=== PATIENT | female | born 1935 | race Caucasian/White ===

== ENCOUNTER 2017-01-08 07:35 | Emergency (ER) | payer MEDICARE, OTHER ==
[~2017-01-08] VITALS: Ht 172.7 cm; Wt 79.4 kg
[~2017-01-08 07:35] MED LIST: ACETAMINOPHEN325 M1 PO; CIPRO500 MG PO; DETROL LA4 MG; FUROSEMIDE40 MG PO; KEFLEX500 MG PO; LEVOTHYROXINE100 MCG PO; MACROBID 100 M100 MG PO; NAPROSYN500 MG PO; POTASSIUM CHLO10 MEQ PO; PROAIR HFA8.5 GM INH; SYNTHROID100 MCG; TOLTERODINE TART4 MG PO; VITAMIN D5000 UNIT PO; WATER PILL; ZOFRAN ODT4 MG PO
[2017-01-08] MEDS ORDERED: CIPRO500 MG PO (09:06)
== END 2017-01-08 09:45 | disposition home or self-care (01) ==
LOC: ED 07:35
PROC: 0T9B70Z Drainage of Bladder with Drainage Device, Via Natural or Artificial Opening (ICD-10-PCS; principal; 2017-01-08)
DX: N39.0 Urinary tract infection, site not specified (principal); R32 Unspecified urinary incontinence; E03.9 Hypothyroidism, unspecified; J45.909 Unspecified asthma, uncomplicated; Z87.891 Personal history of nicotine dependence; Z90.710 Acquired absence of both cervix and uterus; Z79.899 Other long term (current) drug therapy
CPT/HCPCS: 51702; 81001; 87077; 87088; 87186; 99283

== ENCOUNTER 2017-02-25 15:56 | Emergency (ER) | payer MEDICARE, OTHER ==
[~2017-02-25] VITALS: Ht 172.7 cm; Wt 79.4 kg
--- OUTSIDE RECORDS SUMMARY | ~2017-02-25 | XMS ---
Demographics + + + | Address | [address] | | | [address] | | | [place] [address] | + + + | Preferred Language | Unknown | + + + | Marital Status | Unknown | + + + | Synagogue Affiliation | Unknown | + + + | Race | Unknown | + + + | Ethnic Group | Unknown | + + + Author + + + | Author | [facility] | + + + | Organization | [facility] | + + + | Address | [address] | | | [place] [address] | + + + | Phone | | + + + Care Team Providers + + + + | Care Pie Chef Name | Role | Phone | + + + + Unavailable | Unavailable | + + + + PROBLEMS +---------+ + + +--------+ + + | Type | Condition | ICD9-CM | [id number] | Onset | Condition | SNOMED | | | | Code | Code | Dates | Status | Code | +---------+ + + +--------+ + + | Problem | Urge | N39.41 | | | Active | [id number] | | | incontinen | | | | | | | | ce | | | | | | +---------+ + + +--------+ + + | Problem | Chronic | | Z92.89 | | Active | 407062603 | | | indwelling | | | | | | | | Gamez | | | | | | | | catheter | | | | | | +---------+ + + +--------+ + + | Problem | Lymphedema | | I89.0 | | Active | [id number] | +---------+ + + +--------+ + + | Problem | Acquired | E03.9 | | | Active | [id number] | | | hypothyroi | | | | | | | | dism | | | | | | +---------+ + + +--------+ + + | Problem | Essential | | I10 | | Active | [id number] | | | hypertensi | | | | | | | | on | | | | | | +---------+ + + +--------+ + + ALLERGIES Unknown Allergies SOCIAL HISTORY No smoking Hx information available PLAN OF CARE VITAL SIGNS MEDICATIONS Unknown Medications RESULTS No Results PROCEDURES No Known procedures IMMUNIZATIONS No Known Immunizations"
--- OUTSIDE RECORDS SUMMARY | ~2017-02-25 | XMS ---
Demographics + + + | Address | [address] | | | [address] | | | [place] [address] | + + + | Preferred Language | Unknown | + + + | Marital Status | Unknown | + + + | Episcopal Affiliation | Unknown | + + + | Race | Unknown | + + + | Ethnic Group | Unknown | + + + Author + + + | Author | [facility] | + + + | Organization | [facility] | + + + | Address | [address] | | | [place] [address] | + + + | Phone | | + + + Care Team Providers + + + + | Care Platform Material Handler Manager Name | Role | Phone | + + + + Unavailable | Unavailable | + + + + PROBLEMS +---------+ + + +--------+ + + | Type | Condition | ICD9-CM | [id number] | Onset | Condition | SNOMED | | | | Code | Code | Dates | Status | Code | +---------+ + + +--------+ + + | Problem | Urge | N39.41 | | | Active | [id number] | | | incontinen | | | | | | | | ce | | | | | | +---------+ + + +--------+ + + | Problem | Chronic | | Z92.89 | | Active | 397846795 | | | indwelling | | | | | | | | Gamez | | | | | | | | catheter | | | | | | +---------+ + + +--------+ + + | Problem | Lymphedema | | I89.0 | | Active | 340467353 | +---------+ + + +--------+ + + | Problem | Acquired | E03.9 | | | Active | 675695905 | | | hypothyroi | | | | | | | | dism | | | | | | +---------+ + + +--------+ + + | Problem | Essential | | I10 | | Active | [id number] | | | hypertensi | | | | | | | | on | | | | | | +---------+ + + +--------+ + + ALLERGIES Unknown Allergies SOCIAL HISTORY No smoking Hx information available PLAN OF CARE VITAL SIGNS MEDICATIONS + + + + + + + +--------+ | Medicati | Instruct | Dosage | Frequenc | Start | End Date | Duration | Status | | on | ions | | y | Date | | | | + + + + + + + +--------+ | Vitamin | Orally | 1 | 24h | 19 Nov, | | | Active | | D 2000 | Once a | capsule | | 2011 | | | | | UNIT | day | | | | | | | + + + + + + + +--------+ | Furosemi | | TAKE TWO | | | | | Active | | de 40mg | | TABLETS | | | | | | | | | BY | | | | | | | | | MOUTH | | | | | | | | | EVERY | | | | | | | | | DAY | | | | | | + + + + + + + +--------+ | Levothyr | Orally | 1 tablet | 24h | | | | Active | | oxine | Once a | every | | | | | | | Sodium | day | morning | | | | | | | 100 MCG | | on an | | | | | | | | | empty | | | | | | | | | stomach | | | | | | + + + + + + + +--------+ RESULTS No Results PROCEDURES No Known procedures IMMUNIZATIONS No Known Immunizations"
--- OUTSIDE RECORDS SUMMARY | ~2017-02-25 | XMS ---
Demographics + + + | Address | [address] | | | [address] | | | [place] [address] | + + + | Preferred Language | Unknown | + + + | Marital Status | Unknown | + + + | Mormonism Affiliation | Unknown | + + + | Race | Unknown | + + + | Ethnic Group | Unknown | + + + Author + + + | Author | [facility] | + + + | Organization | [facility] | + + + | Address | [address] | | | [place] [address] | + + + | Phone | | + + + Care Team Providers + + + + | Care Telesales Agent Name | Role | Phone | + + + + Unavailable | Unavailable | + + + + PROBLEMS +---------+ + + +--------+ + + | Type | Condition | ICD9-CM | [id number] | Onset | Condition | SNOMED | | | | Code | Code | Dates | Status | Code | +---------+ + + +--------+ + + | Problem | Urge | N39.41 | | | Active | [id number] | | | incontinen | | | | | | | | ce | | | | | | +---------+ + + +--------+ + + | Problem | Chronic | | Z92.89 | | Active | 170876883 | | | indwelling | | | | | | | | Gamez | | | | | | | | catheter | | | | | | +---------+ + + +--------+ + + | Problem | Lymphedema | | I89.0 | | Active | [id number] | +---------+ + + +--------+ + + | Problem | Acquired | E03.9 | | | Active | [id number] | | | hypothyroi | | | | | | | | dism | | | | | | +---------+ + + +--------+ + + | Problem | Essential | | I10 | | Active | [id number] | | | hypertensi | | | | | | | | on | | | | | | +---------+ + + +--------+ + + ALLERGIES Unknown Allergies SOCIAL HISTORY No smoking Hx information available PLAN OF CARE + +---------+ | Activity | Details | + +---------+ +---+ | | +---+ + + + | Follow Up | 6 Months Reason:null | + + + VITAL SIGNS MEDICATIONS + + + + [...] | Once a | capsule | | 2012 | | | | | UNIT | [...] + + +--------+ RESULTS No Results PROCEDURES + + + + + | Procedure | Date Ordered | Related Diagnosis | Body Site | + + + + + | CYSTOSCOPY | Jan 27, 2017 | | | + + + + + IMMUNIZATIONS No Known Immunizations"
== END 2017-02-25 16:58 | disposition home or self-care (01) ==
LOC: ED 15:56
DX: T83.031A Leakage of indwelling urethral catheter, initial encounter (principal); J45.909 Unspecified asthma, uncomplicated; E03.9 Hypothyroidism, unspecified; Z87.891 Personal history of nicotine dependence; Z90.710 Acquired absence of both cervix and uterus; Z79.899 Other long term (current) drug therapy
CPT/HCPCS: 99283

== ENCOUNTER 2017-08-24 05:37 | Day surgery (SDC) | payer MEDICARE, OTHER ==
[~2017-08-24] VITALS: Ht 172.7 cm; Wt 71.8 kg
--- NOTE | 2017-08-24 06:16 | NUR ---
CHART REVIEW DONE BY OR CHARGE, K+ 3.1. ORDER FOR CMP SENT TO LAB, LAB CALLED. WILL BE OVER TO DRAWN PT.
--- NOTE | 2017-08-24 09:45 | NUR ---
LE 0840 PT RETURNED FROM PACU, AWAKE TALKING WITH STAFF. PT DENIES PAIN AND NAUSEA. VITALS STABLE. ORANGE JUICE AND WATER GIVEN. PT WATCHING TV, NO FURTHER NEEDS AT THIS TIME. CALL LIGHT IN HAND. LE 0900 IN TO CHECK ON PT, PT AWAKE WATCHING TV. PT C/O "STOMACH ACHE." DENIES FEELING THE NEED TO VOMIT. CRACKERS GIVEN. PT RESTING, DENIES PAIN. WILL CONTINUE TO CHECK ON PT.
--- NOTE | 2017-08-24 09:48 | NUR ---
IN TO CHECK ON PT, PT SLEEPING. PT AWAKENS TO VOICE AND SLIGHT TOUCH. DENIES PAIN OR NAUSEA. TOLERATED CRACKER AND WATER. VITALS OBTAINED, STABLE. NO FURTHER NEEDS AT THIS TIME. PT RESTING. WILL CONTINUE TO MONITOR.
--- NOTE | 2017-08-24 10:20 | NUR ---
LE 1000 PT CALLED, MAGDALENA BETANCUR IN ROOM. RN IN ROOM, URINE LEAKING AROUND CATHETER. CATHETER BALLOON INFLATED WIT 25 CC OF NS PER PIPE NICHOLS. ASSITED PT TO STANDING, TOLERATED WELL. GOWN AND LINEN CHANGED. PT PERSONAL BREIFS PLACED. PT BACK TO BED. CHICKEN NOODLE SOUP GIVEN PER REQUEST. NO FURTHER NEEDS AT THIS TIME. DISCUSSED DISCHARGE WITH PT, WILL CALL CAREGIVER TO NOTIFY. NO FURTHER NEEDS, CALL LIGHT IN REACH.
--- NOTE | 2017-08-24 10:58 | OR ---
[facility] [address], [place] [address] Signed DATE OF OPERATION: 08/24/2017 SURGEON: Adalberto Light MD PREOPERATIVE DIAGNOSES: 1. Chronic indwelling Gamez catheter due to history of severe overactive bladder symptoms. 2. Bladder lesion. POSTOPERATIVE DIAGNOSES: 1. Chronic indwelling Gamez catheter due to history of severe overactive bladder symptoms. 2. Bladder lesion. NAMES OF PROCEDURES: 1. Diagnostic cystoscopy. 2. Transurethral resection of bladder tumor-small. ANESTHESIA: General. ESTIMATED BLOOD LOSS: Minimal. COMPLICATIONS: None. SPECIMENS: Posterior bladder wall lesion sent to pathology for evaluation. DRAINS: A 24-Djiboutian 2-way Gamez catheter, connected to gravity drainage via a leg back. INDICATIONS FOR PROCEDURE: Nellie is a very pleasant 81-year-old female, who is well known to me. She is currently undergoing q.3 week Gamez catheter exchanges for management of bladder spasticity/dysfunction. 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 At this point in time, she is a Gamez catheter-dependent. She underwent a cystoscopy a few weeks ago in my clinic, where she was found to have a couple of lesions present on the posterior wall of Electronically Signed By: ADALBERTO LIGHT MD 08/24/17 1058 PATIENT NAME: NELLIE CROSS OPERATIVE REPORT DATE OF : 31 REPORT #: [id number] PHYSICIAN: ADALBERTO LIGHT MD PCP: RAINA MARIE DO REPORT IS CONFIDENTIAL AND NOT TO BE RELEASED WITHOUT AUTHORIZATION [facility] [address] [place], [place] [address] Signed the bladder that were suspicious beyond the point of typical mucosal edema due to chronic Gamez catheter irritation. She presents today to undergo resection of these posterior wall tumors to rule out the possibility of possible malignancy. OPERATIVE FINDINGS: 1. On cystoscopy, there were two 0.5 cm lesions noted juxtaposed to one another present on the posterior wall of the bladder. There was one that appeared to be hemorrhagic in nature and the other appeared to be hyperplastic. Both lesions were excised using a bipolar loop without difficulty and sent to pathology for evaluation. The biopsy bed was then cauterized gently to ensure adequate hemostasis. 2. The remainder of the bladder appeared to be within normal limits with no evidence of any other lesions or masses or stones. Bilateral ureteral orifices are in their normal anatomic location. 3. Ureteroscopy reveals moderate intrinsic sphincter deficiency. Her remainder of the urethra appears normal, however, is moderately dilated. 4. A fresh 24-Djiboutian 2-way Gamez catheter was inserted into the patient's bladder at the end of the procedure, and connected to a leg bag. DESCRIPTION OF PROCEDURE: After informed consent was obtained, the patient was taken back to the operating room. She was transferred from the [facility] to the operating room table, where general anesthesia was induced. She was placed in the dorsal lithotomy position and her genitalia were prepped and draped in standard sterile fashion. Initial cystoscopy was performed using a 30-degree lens on a 21-Djiboutian introducer. Panendoscopic view of the bladder then obtained. I then removed the cystoscope and inserted a resectoscope through a 24-Djiboutian sheath. I then began to resect using the bipolar loop, the 2 posterior bladder wall lesions as described above. I tried to obtain muscle fibers within the specimen to ensure adequate depth of biopsy. I successfully excised both specimens transurethrally and placed in a specimen cup. I also excised some of the surrounding erythematous tissue as well. All specimens were placed in the single specimen cup and sent to the lab for evaluation. After cauterizing the biopsy bed, I re-evaluated the remaining parts of the bladder wall and was assured that I did not see any other abnormal areas. The patient's bladder was then drained and the resectoscope was then removed. The procedure was then terminated. The patient tolerated the procedure well without any complication. She will now be transferred to the postanesthesia care unit in stable condition. DISPOSITION: The patient will be discharged to home later today in stable condition with her 24-Djiboutian 2-way Gamez catheter connected to gravity drainage. She will be sent home with Bactrim Double Strength one tablet p.o. b.i.d. for a total of 7 days along with Percocet 5/325 dispense #10 p.r.n. pain. She will be scheduled to return to clinic in 3 Electronically Signed By: ADALBERTO LIGHT MD 08/24/17 1058 PATIENT NAME: NELLIE CROSS OPERATIVE REPORT DATE OF : 31 REPORT #: [id number] PHYSICIAN: ADALBERTO LIGHT MD PCP: RAINA MARIE DO REPORT IS CONFIDENTIAL AND NOT TO BE RELEASED WITHOUT AUTHORIZATION [address] [address] Signed weeks to undergo postop check and to discuss her pathology results. We will also perform a routine catheter exchange at that time. Adalberto Light MD AR/MODL /[id number] Copies: ~ Electronically Signed By: ADALBERTO LIGHT MD 08/24/17 1058 PATIENT NAME: NELLIE CROSS OPERATIVE REPORT DATE OF : 31 REPORT #: [id number] PHYSICIAN: ADALBERTO LIGHT MD PCP: RAINA MARIE DO REPORT IS CONFIDENTIAL AND NOT TO BE RELEASED WITHOUT AUTHORIZATION
== END 2017-08-24 10:50 | disposition home or self-care (01) ==
LOC: OPS 05:37 → DS 05:37 → OPS 06:45 → DS 09:40 → OPS 09:40
PROVIDERS: Urology
PROC: 0TJB8ZZ Inspection of Bladder, Via Natural or Artificial Opening Endoscopic (ICD-10-PCS; 2017-08-24)
PROC: 0TBB8ZZ Excision of Bladder, Via Natural or Artificial Opening Endoscopic (ICD-10-PCS; principal; 2017-08-24 06:45)
DX: N30.10 Interstitial cystitis (chronic) without hematuria (principal); N39.41 Urge incontinence; I89.0 Lymphedema, not elsewhere classified; I11.0 Hypertensive heart disease with heart failure; I50.9 Heart failure, unspecified; E03.9 Hypothyroidism, unspecified; M19.90 Unspecified osteoarthritis, unspecified site; E78.00 Pure hypercholesterolemia, unspecified; M54.9 Dorsalgia, unspecified; G89.29 Other chronic pain; E55.9 Vitamin D deficiency, unspecified; Z96.0 Presence of urogenital implants; Z90.710 Acquired absence of both cervix and uterus; Z98.890 Other specified postprocedural states; Z79.899 Other long term (current) drug therapy
CPT/HCPCS: 00910; 36415; 80053; 88305; 88341; 88342; J0696; J1100; J2250; J2405; J2704; J3010; J7120

== ENCOUNTER 2019-07-22 12:56 | Inpatient (IN) | payer MEDICARE, OTHER ==
[~2019-07-22] VITALS: Ht 172.7 cm; Wt 72.6 kg
--- NOTE | 2019-07-22 20:19 | NUR ---
PT REPORT RECIEVED FROM CLIENT EXPERIENCE SPECIALIST. PT TRANSPORTED VIA STRETCHER BY LINE CREW SUPERVISOR WITH LEVOPHED DRIP AND POTASSIUM INFUSING. PT ON STEEL FLOOR PAN PLACING SUPERVISOR DURING TRANSPORT. MOVED PT TO HOSPITAL BED. PT RESPONSIVE TO VOICE, AND TOUCH. ORIENTED TO SELF BUT NOT TIME, DATE, OR EVENT.
--- NOTE | 2019-07-22 20:45 | NUR ---
INITIAL ASSESSMENT COMPLETED. PT BLOOD PRESSURE AT 127/59 (76). LEVOPHED DRIP DECREASED TO 8 MCG/MIN. SKIN ASSESSMENT REVEALED LARGE REDDENED AREA AND EXCORIATION ON COCCYX. COVERED WITH ALLEVYN DRESSING AT THIS TIME. PT CONTINUES TO RESPOND TO QUESTIONS AND COMMANDS. URINE CATHETER MANIPULATED, AND URINE OUT PUT HAS INCREASED. WILL CONTINUE TO MONITOR BLOOD PRESSURE, URINE OUTPUT, AND LEVEL OF CONCIOUSNESS ROHINI.
--- NOTE | 2019-07-22 22:09 | NUR ---
LEVOPHED DRIP DECREASED TO 4 MCG/MIN FOR BLOOD PRESSURE OF 106/510 (62). AFTER 15 MINUTES LEVOPHED DRIP TITRATED BACK UP TO 8 MCG/MIN FOR BLOOD PRESSURE OF 84/37 (48).
--- NOTE | 2019-07-22 22:35 | NUR ---
PT DESATURATED TO 82 PERCENT ON 2 L OXIMASK. TURNED OXYGEN UP TO 4 L. PT NOW MAINTAINING SATURATIONS ABOVE 90 PERCENT.
--- NOTE | 2019-07-22 23:53 | NUR ---
IN ROOM FOR ASSESSMENT. PT ORIENTED TO SELF AND LOCATION AT THIS TIME. CROOK CATHETER LEAKING URINE, ADVANCED CROOK HIGHER AND REFILLED BALLON. LEVOPHED TURNED DOWN TO 6 MCG/MIN FOR BLOOD PRESSURE OF 112/72 (77). SUPPLEMENTAL O2 TITRATED DOWN TO 2 L OXYMASK. SATURATIONS AT 97 PERCENT. REPOSITIONED PT ONTO LEFT SIDE. WILL CONTINUE TO [facility] MONITOR.
--- NOTE | 2019-07-23 00:47 | NUR ---
LEVOPHED DRIP TITRATED BACK UP TO 8 MCG/MIN TO KEEP BLOOD PRESSURE TO KEEP MAP OVER 60.
--- NOTE | 2019-07-23 02:10 | NUR ---
LEVOPHED DRIP REMAINS AT 8 MCG/MIN. URINE OUTPUT CONTINUES TO BE WNL. PT SLEEPING DEEPLY, SPO2 98 PERCENT ON 2 L OXYMASK.
--- NOTE | 2019-07-23 02:21 | NUR ---
LEVOPHED DRIP TITRATED UP TO 10 MCG/MIN FOR A BLOOD PRESSURE OF 73/49 (53).
--- NOTE | 2019-07-23 03:19 | NUR ---
PT AWAKE IN ROOM, CALLING OUT. PT APPEARS MORE ALERT THAN BEFORE. SHE SAYS "I FEEL FINE." PT DENIES HAVING ANY MEDICAL PROBLEMS. STATES "DILEEP LAYS OUT MY MEDS FOR ME AND I KNOW WHEN TO TAKE THEM" PT IS NOT ORIENTED TO DATE, TIME, OR EVENT. PT NOW BACK ALSEE. WILL CONTINUE TO CLOSELY MONITOR.
--- NOTE | 2019-07-23 03:38 | NUR ---
PT AWAKE IN ROOM, WATCHING TELEVISON. ASSISTED PT WITH DRINKING WATER. PT ASKING QUESTIONS ABOUT HER CAREGIVER EMILEE. INFORMED PT THAT WE WOULD TRY TO GET A HOLD OF HER LATER IN THE MORNING.
--- NOTE | 2019-07-23 04:00 | NUR ---
PT ASSESSMENT COMPLETED. PT ABLE TO MOVE HERSELF IN BED AND REMAINS AWAKE THROGHOUT THE ASSESSMENT. CONTINUES TO ASK ABOUT GOING HOME TODAY AND ABOUT WHY SHE WAS HOSPITALIZED. FREQUENT REORIENTATION REQUIRED. PT IS WATCHING TV. IV FLUIDS INFUSING AND LEVOPHED DRIP CONTINUES TO INFUSE AT 10 MCG/MIN.
--- NOTE | 2019-07-23 06:10 | NUR ---
PT REMAINS AWAKE WATCHING TV. ATTEMPTED TO TURN LEVOPHED DOWN TO 8 MCG/MIN BUT HAD TO TURN BACK UP TO 10 MCG/MIN TO MAINTAIN MAP AND SYSTOLIC PRESSURE. PT GIVEN WATER. ALL QUESTIONS ANSWERED. WILL CONTINUE TO MONITOR.
--- NOTE | 2019-07-23 06:48 | NUR ---
LEVOPHED DRIP TITRATED DOWN TO 8 MCG/MIN.
--- NOTE | 2019-07-23 07:36 | EKG ---
[facility] [address] [place] [facility] [address] [place] [address] Signed Normal sinus rhythm Prolonged QT Abnormal ECG When compared with ECG of 17-AUG-2017 11:11, QT has lengthened Confirmed by MARIA DEL CARMEN ZAVALA MD ([id number]) on 07/23/2019 7:35:49 AM Electronically Signed By: MARIA DEL CARMEN ZAVALA MD 07/23/19 0736 PATIENT NAME: NELLIE CROSS Electrocardiogram DATE OF : 31 PHYSICIAN: MARIA DEL CARMEN ZAVALA MD REPORT #: [id number] REPORT IS CONFIDENTIAL AND NOT TO BE RELEASED WITHOUT AUTHORIZATION
--- NOTE | 2019-07-23 08:15 | NUR ---
DR. ZAVALA IN ROOM TO SEE PATIENT. PT REMAINS SLIGHTLY CONFUSED, ASKING IF SHE CAN GO HOME. PT DOES NOT RECALL WHY SHE IS IN THE HOSPITAL, AND NOT AWARE OF WHY SHE IS HERE. ASSESSMENT COMPLETE. PLAN OF CARE DISCUSSED.
--- NOTE | 2019-07-23 09:04 | NUR ---
LEVOPHED TURNED DOWN TO 6 MCG/MIN AT THIS TIME. LEVOPHED INFUSING INTO LEFT AC WITHOUT DIFFICULTY. NO SIGNS OF PHLEBITIS OR INFILTRATION. WILL CONTINUE TO MONITOR CLOSELY.
--- NOTE | 2019-07-23 10:59 | NUR ---
LEVOPHED TURNED DOWN TO 4 MCG/MIN. PT HAS HAD A VISITOR HERE AND GONE. PT RESTING IN BED AND REQUESTS TO HAVE HER "ACTIVITY BOOKS" THAT WILL HELP HER PASS THE TIME. PT REMAINS ALERT, ORIENTED TO SELF AND MONTH, AND BECOMING FAMILIAR WITH THE SITUATION. PT DOES NOT RECALL YESTERDAYS EVENTS AND STATES, "I DON'T REMEMBER PASSING OUT! OR TAKING A RIDE IN THE AMBULANCE." PT TO BE GIVEN LACTULOSE FOR ELEVATED AMMONIA LEVEL.
--- NOTE | 2019-07-23 13:58 | NUR ---
PATIENT UP TO BSC TO HAVE A BM AND HAS A LARGE FORMED BM, WELL S OME LIQUID STOOL. IV SITE IN LEFT AC RE-DRESSED BUT IS STILL LEAKING AROUND SITE SOME. WILL CONTINUE TO MONITOR. PT'S LEVOPHED HAS BEEN OFF SINCE 1300 AND BP HOLDING STEADY. LAST BP 96/47 (60). PT IS A 1 PERSON ASSIST IN AND OUT OF BED. PT NOW BACK IN BED WATCHING TV AND LOOKING AT HER WORD BOOKS.
--- NOTE | 2019-07-23 14:13 | NUR ---
PATIENT UP TO BSC AGAIN AND CROOK CATHETER INADVERTENTLY PULLED OUT WHILE PATIENT GETTING UP TO BSC. PT DENIES FEELING CATHETER REMOVING. BALLOON STILL INTACT WITH SALINE UPON INSPECTION, WITH SOME PURULENT DRAINAGE ON TIP OF CROOK CATHETER. PT ON COMMODE HAVING ANOTHER B M AT THIS TIME.
--- NOTE | 2019-07-23 14:40 | NUR ---
NEW CROOK PLACED, 18 FR, 10 CC BALLOON WITHOUT DIFFICULTY. PT'S PREVIOUS CROOK HAD FALLEN OUT WHEN PATIENT MOVING TO [facility]. PT DENIED FEELING THIS FALLING OUT, AND NO SIGN OF ANY DAMAGE FROM CATHETER REMOVAL WITH BULB FULL OF SALINE.
[2019-07-23] MEDS ORDERED: POTASSIUM CHLO20 ME1 PO (16:37)
--- NOTE | 2019-07-23 17:20 | NUR ---
LEVOPHED TURNED BACK ON AT 2 MCG/MIN AT THIS TIME. LAST BP 86/42 AND 86/44 WITH THE MAPS IN THE LOW 50s. PT CONTINUES TO MAKE URINE WELL. PT REMAINS CONFUSED IN GENERAL AND HAS A HARD TIME REMEMBERING EVENTS OF THE DAY, NEEDING REMINDERS OFTEN. PT VERY PLEASANT AND THANKFUL FOR HER CARE. CONTINUE TO MONITOR.
--- NOTE | 2019-07-23 20:00 | NUR ---
PT AT THIS TIME IS ALERT AND TALKING. LACTULOSE DOSE FOR THIS EVENING WAS HELD SINCE PT HAS HAD SEVERAL BM'S TODAY. ALL LOBES ARE CLEAR, ABD SOUNDS PRESENT, PT HAS +1 BILATERAL LOWER LEG EDEMA. OVERALL STRENGTH IS +4. LEVOPHED IS AT 2MCG. V/S ARE WDL OVERALL. WILL CONTINUE TO MONITOR.
--- NOTE | 2019-07-23 22:05 | NUR ---
LEVOPHED DRIP INCREASED TO 4MCG FOR BP OF 90/51 (53). PT IS AWAKE AND ALERT IN BED WATCHING TV.
--- NOTE | 2019-07-24 00:30 | NUR ---
AT ABOUT 2340 IT WAS NOTED THAT LEFT FOREARM IV SITE HAS INFILTRATED. LEVOPHED DRIP WAS RUNNING ALONG WITH IV FLUIDS. MD ZAVALA WAS CALLED FOR AN ORDER OF PHENTOLAMINE SUBQ INJECTION, ORDER WAS RECEIVED. POTATO PEELER WAS ALSO CALLED TO ORGANIZED THE MEDICATION SINCE I WAS UNABLE TO OVERRIDE THE ORDER IN THE [facility]IS. POLICY WAS REVIEWD, FLUID WAS ASPIRATED FROM IV SITE AND THEN FLUSHED WITH NS PER POLICY. IV SITE WAS REMOVED PER POLICY. 10MG PHENTOLAMINE WAS DILUTED IN 15MLS NS. PT WAS INJECTED X6 PER HOSPITAL POLICY. WILL CONTINUE TO MONITOR IV SITE.
--- NOTE | 2019-07-24 01:39 | NUR ---
MD ZAVALA WAS CALLED ABOUT DROPPING BP'S. ORDERS WERE RECEIVED TO D/C IV FLUIDS AND TO PUT PT BACK ON LEVOPHED VIA NEW PERIPHERAL IV SITE IN LEFT FOREARM. PICC LINE CONSULT IS ALSO TO BE ORDERED FOR THE MORNING. AT THIS TIME, RIGHT FOREARM IS HOT TO TOUCH BUT EDEMA HAS NOT INCREASED. RIGHT HAND AND FINGERS ARE WARM TO TOUCH NOW. PT SINCE THE INCIDENT OCCURED HAS NOT HAD ANY NEW NUMBNESS IN HER FINGERS. WILL CONTINUE TO MONITOR.
--- NOTE | 2019-07-24 04:00 | NUR ---
AT THIS TIME THE D/C IV SITE ON HER LEFT AC/FOREARM IS NOT HOT ANYMORE, RIGHT ULNAR AND RADIAL PULSES +2, EDEMA IS UNCHANGED OVERALL, PT DENIES NEW NUMBNESS IN RIGHT HAND AND FINGERS, CAP REFILL IS <2 SEC. ALL LOBES ARE CLEAR AT THIS TIME. LEVOPHED DRIP AT 2MCG. IV SITE WDL SO FAR. V/S WDL WITH MUCH BETTER BP'S, BILATERAL LOWER LEG EDEMA IS UNCHANGED AT +1. NO NEW CONCERNS NOTED AT THIS TIME.
--- NOTE | 2019-07-24 06:31 | NUR ---
INFILTRATION SITE ON RIGHT FOREARM HAS MUCH LESS EDEMA PRESENT AT THIS TIME, HAND AND FINGERS ARE WARM TO TOUCH, ULNAR AND RADIAL PULSES ARE +2, PT DENIES PAIN AT SITE. LEFT FOREARM IV SITE IS WDL SO FAR WITH LEVOPHED RUNNING AT 2MCG. V/S ARE WDL.
--- NOTE | 2019-07-24 06:33 | NUR ---
PT ALSO WAS PUT ON 2L O2 NC WHILE SLEEPING. PT MAY HAVE SOME RAIN.
--- NOTE | 2019-07-24 07:42 | NUR ---
REPORT RECEIVED FROM SYDNI NICHOLS. WHITE BOARD UPDATED. PATIENT SITTING UP IN CHAIR WITH CHAIR ALARM IN PLACE. PLEASANTLY CONFUSED. RIGHT ARM OUTLINED WITH MARKER FROM LEVOPHED INFILTRATION OVERNIGHT. LOOKS VERY MUCH IMPROVED. SKIN NOT EDEMETOUS. CROOK URINE OUTPUT YELLOW. BREAKFAST ORDERED. LEVOPHED INFUSING INTO LFA IV.
--- NOTE | 2019-07-24 09:54 | NUR ---
PATIENT GIVEN WARM BLANKET. STILL SITTING UP IN CHAIR AFTER BREAKFAST. 40MEQ OF KCL REPLACEMENT TOTAL THIS MORNING FOR POTASSIUM OF 3.1. PLEASANTLY CONFUSED. FRESH ICE WATER PROVIDED. NO FURTHER NEEDS AT THIS TIME.
--- NOTE | 2019-07-24 10:22 | NUR ---
STANDBY ASSIST/1 PERSON ASSIST BACK TO BED. BELONGINGS IN REACH. CALL LIGHT ON LAP. VSS. AFEBRILE. LEFT SALINE LOCKED PER MD REQUEST. MONITORING BLOOD PRESSURES CLOSELY THE LEVOPHED DRIP WAS STOPPED AT 0800.
--- NOTE | 2019-07-24 15:12 | NUR ---
Pt is sitting in her chair watching tv. She ordered dinner. Her vitals were taken. BP 93/43 (53). Pt tranfered from the chair to bed with little assistance. Call light is within reach, visitor at bedside. Will continue to monitor.
--- NOTE | 2019-07-24 16:00 | NUR ---
Pt is laying in bed watching tv. Pt continues to take play with the SpO2 monitor on her finger which causes the Sp02 numbers to drop to the 80%'s and de sat. Call light is on Pt lap. Will continue to monitor.
--- NOTE | 2019-07-24 18:00 | NUR ---
PATIENT RESTING IN BED AT THIS TIME. CROOK CATHETER EMPTIED. PATIENT REORIENTED TO ROOM AND SITUATION. SAT AND SPOKE WITH PATIENT. CALL LIGHT IN REACH. NO OTHER NEEDS AT THIS TIME. WILL CONTINUE TO CLOSELY MONITOR.
--- NOTE | 2019-07-24 20:40 | NUR ---
PT EARLIER THIS EVENING WAS ANXIOUS ABOUT BEING HERE IN THE HOSPITAL. PT WAS AFRAID TO BE ALONE. AT THIS TIME, PT IS CALM. ALL LOBES ARE CLEAR BUT ARE DIMINISHED IN THE BASES. BILATERAL LOWER LEG EDEMA IS STILL +1, OVERALL STRENGTH IS +4, URINE OUTPUT IS CROOK IS ADEQUATE. ABD SOUNDS ARE PRESENT, PT DENIES PAIN OVERALL. PT IS ORIENTED TO DAY AND SELF AT THIS TIME. PT IS ALERT HOWEVER. BP'S ARE ON THE SOFT SIDE AT THIS TIME. WILL CONTINUE TO MONITOR. RIGHT IV INFILTRATION SITE IS WDL AT THIS TIME. RADIAL, ULNAR AND PEDIS PULSES ARE +2. OTHER V/S ARE WDL.
--- NOTE | 2019-07-24 22:00 | NUR ---
CROOK CARE AND LEAH CARE WAS DONE, V/S WDL OVERALL WITH SOME SOFT BP'S. NO NEW CONCERNS NOTED AT THIS TIME.
--- NOTE | 2019-07-25 00:15 | NUR ---
PT AT THIS TIME LOST ANOTHER IV SITE. NEW IV WAS PLACED. ALL LOBES ARE CLEAR BUT DIMINISHED IN THE BASES. NO NEW CONCERNS WERE NOTED WITH THIS ASSESSMENT. PT IS AWAKE IN BED.
--- NOTE | 2019-07-25 02:34 | NUR ---
PT IS STILL AWAKE IN BED. PT APPEARS TO HAVE SOME VISUAL HALLUCINATIONS PRESENT AT TIMES. V/S ARE WDL.
--- NOTE | 2019-07-25 04:00 | NUR ---
PT IS STILL AWAKE. HER HALLUCINATIONS HAVE INCREASED SINCE 0200. THE BED ALARM IS ON AT THIS TIME SINCE PT TRIED TO GET OUT OF BED. PT IS NOT REALLY RE-DIRECTABLE AT THIS TIME. OTHERWISE NO OTHER CHANGES WERE NOTED. WILL CONTINUE TO MONITOR.
--- NOTE | 2019-07-25 06:00 | NUR ---
SO FAR PT STILL HAS NOT SLEPT AT ALL THIS SHIFT. HER HALLUCINATIONS ARE STILL PRESENT, BED ALAM IS STILL IN USE. V/S ARE WDL, URINE OUTPUT IS ADEQUATE. PT MAY NEED TO BE A 1:1 TODAY.
--- NOTE | 2019-07-25 07:58 | NUR ---
REPORT RECEIVED FROM SYDNI NICHOLS. WHITE BOARD UPDATED. PATIENT SITTING UP IN CHAIR. PLEASANTLY CONFUSED. VSS. BLINDS OPENED ON WINDOW. HEART MONITOR READS SINUS RHYTHM. HR 70s. STUDENT NURSE, TALITA ASSISTING WITH PATIENT CARES. IV SALINE LOCKED.
--- NOTE | 2019-07-25 09:28 | NUR ---
PATIENT DISTRESSED RIGHT NOW. CONFUSED AND UNABLE TO ORIENT. WANTING TO HAVE STAFF HELP HER IN TO THE BATHROOM OR GET INSIDE THE CLOSET OR PASS THROUGH WHERE THE LINEN/GARBAGE IS KEPT. CALLING OUT FOR HELP.
--- NOTE | 2019-07-25 09:57 | NUR ---
PT HALLUCINATING. SEES A MAN IN HER ROOM AND CONTINUES TO ASK TO BE PUSHED INTO THE BATHROOM. ROCEPHIN INFUSING INTO LFA IV. INFORMED HER WE COULD GO FOR A WALK AFTER THE IV ABX FINISHED.
--- NOTE | 2019-07-25 10:42 | NUR ---
AMBULATED 100FT IN HALLWAY WITH GAIT BELT AND FWW. 1 PERSON ASSIST. SLIGHTLY DIFFICULT WITH FOLLOWING DIRECTIONS. BACK TO BED NOW. PATIENT EMOTIONAL. ASKING STAFF "ARE YOU GOING TO RAPE ME?". REASSURED HER WE WERE NOT GOING TO HARM HER. CALL LIGHT IN REACH AND BELONGINGS NEXT TO HER BED. UNABLE TO DISTRACT HER.
--- NOTE | 2019-07-25 11:16 | NUR ---
STILL VERY CONFUSED. RESTLESS. REQUESTED "UNDERWEAR, PANTS, BELT AND SHOES". PROVIDED HER WITH HOSPITAL PULLUP ATTENDS AND SCRUB PANTS AND PUT HER OWN SHOES ON. SITTING IN CHAIR NOW. FRIEND VISITING AT THIS TIME.
--- NOTE | 2019-07-25 12:13 | NUR ---
PT ATTEMPTING TO TAKE CROOK CATHETER OUT AND GET UP OUT OF CHAIR. THIS RN TO BEDSIDE. TELE DC'D PER MD ORDER. PT REPEATING "THERE ARE MEN OUT THERE WATCHING ME AND I WON'T GO WITH THEM." PT CONFUSED BUT REMAINING IN CHAIR. CHAIR ALARM PLACED. NO ADDITIONAL REQUESTS OR COMPLAINTS AT THIS TIME. CALL LIGHT WITHIN REACH. PT EASILY VIEWIED FROM NURSES STATION.
--- NOTE | 2019-07-25 12:35 | NUR ---
CHAIR ALARM ON. PT UP OUT OF CHAIR. NOT STEADY ON FEET. PT TRYING TO REMOVE CATHETER AND STATES "I WANT TO LEAVE THIS PLACE NOW." PT UNABLE TO STATE WHERE SHE IS OR WHERE SHE WANTS TO GO. PT ORIENTED ONLY TO SELF. PT POINTS TO "A BLOND GIRL" STANDING IN HER ROOM. PT GUIDED TO BED BY. THIS RN. MAGDALENA URBINA TO BEDSIDE TO SIT WITH PT. PT 1:1 CARE AT THIS TIME. CROOK INTACT AND DRAINING TO GRAVITY.
--- NOTE | 2019-07-25 13:05 | NUR ---
CARLITOS NICHOLS LEAVING BEDSIDE. PT REMAINS 1:1 WITH STUDENT RN, TALITA. PT CALM AND HOLDING CONVERSTATION WHILE SITTING ON EDGE OF BED. CROOK DRAINING TO GRAVITY. MIXED TIMES OF LUCIDITY AND CONFUSION WITH OCCATIONAL HALUCINATIONS.
--- NOTE | 2019-07-25 13:18 | NUR ---
STUDENT NURSE SITTING WITH PATIENT IN HER ROOM 1:1 TO DECREASE PATIENT'S DISTRESS AND CONFUSION. PATIENT STILL VERY CONFUSED. TV ON. BLINDS OPEN. LIGHTS ON. ADMINISTERING 30MEQ KCL REPLACEMENT. PATIENT CONCERNED ABOUT TAKING MORE POTASSIUM. ATTEMPTED TO EDUCATE HER ON THE REASONING. CONFUSION CAUSES A BARRIER TO EDUCATION, BUT PATIENT WAS COOPERATIVE WITH TAKING THE PILLS.
--- NOTE | 2019-07-25 14:03 | NUR ---
THIS RN TO BEDSIDE FOR 1:1 CARE WITH PT. PT REPORTS THERE IS A "GOAT" IN THE ROOM. STATES "HE IS GOING TO PEE ON THE FLOOR. HE NEEDS TO BE LET OUT." PT REORIENTED TO PLACE AND SITUATION. CALM BUT CONTINUES TO HAVE HALUCINATIONS AT TIMES. VITALS TAKEN. NO ADDITIONAL REQUESTS OR COMPLAINTS. THIS RN REMAINS AT BEDSIDE.
--- NOTE | 2019-07-25 14:15 | NUR ---
PT REMAINS SITTING IN BED RESTING. TALITA, STUDENT NURSE AT BEDSIDE TO SIT WITH PT. NO APPARENT NEEDS AT THIS TIME.
--- NOTE | 2019-07-25 15:23 | NUR ---
AMBULATING IN HALLWAY WITH STUDENT NURSE. GAIT BELT AND WALKER IN USE. PATIENT CONTINUES TO BE CONFUSED. IMPULSIVE. STATES SHE IS TRYING TO FIND HER FRIEND EMILEE. FOLLOW DIRECTIONS SOMEWHAT, BUT IS EASILY DISTRACTED.
--- NOTE | 2019-07-25 16:46 | NUR ---
PT TRANSFERRED FROM CCU IN HER CHAIR. PT IS ALERT AND CONFUSED. PT HAS A HX OF DEMENTIA. PT REMAINS UPRIGHT IN HER CHAIR WITH THE CHAIR ALARM ON. PT CONTINUES TO HAVE HALLUCINATIONS AND WILL PERIODICALLY TALK TO PEOPLE THAT ARE NOT THERE. PT ALSO STATES, "IT SURE IS RAINING OUT THERE". IT IS FAUSTO OUTSIDE AND NOT RAINING. PT IS CURRENTLY WATCHING TELEVISION. PT IS IN A ROOM NEAR THE NURSE'S STATION AND PROVIDED WITH THE CALL LIGHT. PT IS CONSISTLY TALKING ABOUT HER FRIEND, EMILEE, AND WONDERING WHERE SHE IS.
--- NOTE | 2019-07-25 17:25 | NUR ---
170- DINNER TRAY ORDERED WITH PT'S CHOICES FOR DINNER. 172- PT AMBULATED AROUND THE MEDICAL SURGICAL DEPARTMENT WITH A FRONT WHEEL WALKER AND SBA. PT TOLERATED WELL. PT ASSISTED BACK TO HER CHAIR AND CHAIR ALARM TURNED BACK ON. 172- DINNER TRAY ARRIVED. PT IS EATING MASHED POTATOES AND GREEN BEANS WELL.
--- NOTE | 2019-07-25 18:21 | NUR ---
PATIENT UP TO SHOWER AND THEN TO CHAIR, 1PA FWW. RN DID SHOWER AND CARE. RN IN ROOM 1 ON 1. NO FURTHER NEEDS AT THIS TIME.
--- NOTE | 2019-07-25 18:30 | NUR ---
PT AMBULATED AROUND THE MEDICAL SURGICAL DEPARTMENT. PT TOLERATED WELL. PT ASSISTED BACK TO THE CHAIR AND CHAIR ALARM TURNED ON.
--- NOTE | 2019-07-25 18:39 | NUR ---
PT TRANSFERRED FROM CCU TODAY. PT HAS HX OF DEMENTIA AND IS HAVING SOME DELIRIUM. PT BELIEVES THERE ARE PEOPLE AND GOATS IN HER ROOM, THINKS IT IS RAINING OUTSIDE, AND TRIES TO GET OUT OF HER CHAIR BY HERSELF. PT ATE ABOUT 50% OF HER DINNER, WALKED WITH A FWW AND SBA IN THE HALLS A COUPLE OF TIMES, AND TOOK A SHOWER. CATHETER AND LEAH CARE COMPLETED DURING HER SHOWER. PT DOES NOT LIKE MEN. PT PROVIDED WITH A DECK OF CARDS AND A CROSSWORD PUZZLE FOR ENTERTAINMENT. PT HAS A FRIEND NAMED DILEEP THAT SHE WILL CONSISTANTLY ASK FOR. DILEEP VISITED HER SOMETIME IN CCU TODAY.
--- NOTE | 2019-07-25 19:05 | NUR ---
BEDSIDE REPORT RECEIVED FROM MAGDALENA ROMO. pt UP IN CHAIR. CHAIR ALARM ON. IV CDI, BEBO. COLLIN BURGOS IN ROOM.
--- NOTE | 2019-07-25 20:14 | NUR ---
pt UP IN CHAIR. VSS. ASSESSMENT COMPLETE. ORIENTED TO PERSON, , PLACE. REORIENTATION TO DATE AND EVENT. pt COOPERATIVE STATES "I'M HERE BECAUSE I'M CRAZY". CROOK EMPTIED, CATH CARE COMPLETE. IV SL WNL. COLLIN BURGOS IN ROOM FOR CLOSE MONITORING.
--- NOTE | 2019-07-25 20:45 | NUR ---
ONE ON ONE WITH PATIENT. PATIENT IS IN BED NOW. BED ALRM ON FOR PATIENT'S SAFETY. FLOAT CENTER HOLE REAMER WAS WITH PATIENT.
--- NOTE | 2019-07-25 22:24 | NUR ---
pt RESTING IN BED WITH EYES CLOSED. LIGHTS OFF IN ROOM. BREATHING UNLABORED. BED ALARM ON. FOR pt SAFETY. CLOSE MONITORING WITH COLLIN IRVIN.
--- NOTE | 2019-07-26 00:39 | NUR ---
CHECKED ON pt. RESTING IN BED SNORING. LIGHTS OFF IN ROOM. RESPIRATIONS UNLABORED. CROOK DRAINING YELLOW URINE. BED ALARM ON.
--- NOTE | 2019-07-26 02:00 | NUR ---
pt RESTING IN BED WITH EYES CLOSED, SNORING. VISIBLE CHEST RISE. CROOK DRAINING YELLOW URINE. BED ALARM ON.
--- NOTE | 2019-07-26 05:26 | NUR ---
pt RESTED WELL THIS SHIFT. UP IN CHAIR FOR START OF SHIFT. SBA W FWW. CROOK CATHETER IN PLACE. ORIENTED TO PERSON, , LOCATION. REORIENTATION PROVIDED. BED ALARM IN PLACE. CLOSE 1:1 MONITORING WHILE AWAKE. IV SL WNL.
--- NOTE | 2019-07-26 05:55 | NUR ---
pt AWAKENS EASILY TO VOICE. VSS. CROOK EMPTIED, CONCENTRATED URINE. PO FLUIDS PROVIDED, ENCOURAGED. ASSESSMENT COMPLETE. REORIENTATION TO EVENT, DATE PROVIDED. QUALITY AUDITOR IN ROOM. CALL LIGHT IN REACH, pt DEMONSTRATES USE OF CALL LIGHT. BED ALARM ON. COLLIN BURGOS IN ROOM FOR CLOSE MONITORING.
--- NOTE | 2019-07-26 07:22 | NUR ---
PATIENT AWAKE IN BED. BREAKFAST ORDERED. 1:1 GOING WELL. PATIENT DOES NOT NEED ANYTHING AT THIS TIME.
--- NOTE | 2019-07-26 08:11 | NUR ---
PATIENT UP TO CHAIR. 1 PA W/ WALKER. AMBULATED WELL. I DID A COMPLETE LINEN CHANGE AND DISINFECTED ROOM. PATIENT IS EATING BREAKFAST AND DOES NOT NEED ANYTHING AT THIS TIME. 1:1.
--- NOTE | 2019-07-26 09:00 | NUR ---
PT SITTING UP IN RECLINER. KATHERINE POLANCO SITTING NEXT TO PATIENT CONVERSING WITH HER. PT APPEARS APPROPRIATE THIS AM, ALERT AND ORIENTED TO ALL BUT CURRENT YEAR. DENIES PAIN OR NAUSEA. MULTIPLE TIMES ASKS ABOUT GOING HOME AND WHEN CAN SHE LEAVE. IV TO LEFT FA FLUSHES EASILY. PT ATE BREAKFAST INDEPENDENTLY. CALL LIGHT WITHIN REACH.
--- NOTE | 2019-07-26 09:39 | NUR ---
TRANSFERRED PATIENT BACK TO BED TO ASSIST NURSE JAYASHREE IN CATHETER CHANGE. PATIENT AMBULATED WELL AND WAS HAPPY WITH THE CATH CHANGE. AMBULATED BACK TO CHAIR WITH WALKER AND CAREGIVER EMILEE IS IN ROOM VISITING WITH PATIENT.
--- NOTE | 2019-07-26 09:40 | NUR ---
REPLACED CROOK WITHOUT DIFFICULTY. PT TOLERATED WELL AND TALKED THROUGH PROCEDURE. FRIEND IN ROOM. STATES THAT WE DID A "GOOD JOB".
--- NOTE | 2019-07-26 10:37 | NUR ---
PT CAME AND AMBULATED PATIENT IN HALLWAYS. I ASSISTED KWAME BY WALKING BEHIND PATIENT WITH WHEELCHAIR. PATIENT DID WELL AND IS NOW SITTING BACK IN CHAIR DOING GOOD. I GOT HER A WARM BLANKET AND SHE DOES NOT NEED ANYTHING ELSE AT THIS TIME.
--- NOTE | 2019-07-26 11:00 | NUR ---
In and spoke with Mary, who is well know to this RN. She is somewhat confused, but does recognize this RN. States she doesn't have a senior heavy media operator when I ask how she is doing and if Jaja still assists her. Pt denies she has any family and lives alone at [facility] and cares for self. Pt then later states Jaja cares for her and does her shopping and takes her to all her appointments. Pt has a superintendent terminal indwelling cordero catheter. Pt would like to dc to her apartment on discharge. I called and spoke with Jaja who is listed as her emergency contact. She confirms she assists pt daily with her care, shopping, and appointments. Mary goes to [facility] daily for meals and cooks herself food on the weekend. She feels Mary cannot return to home until her mentation clears. I will ask Dr. Edwards if she feels pt is appropriate for SNF until she mentally clears.
--- NOTE | 2019-07-26 12:04 | NUR ---
PATIENT AWAKE IN CHAIR. SHE ATE ALL OF HER LUNCH AND IS DOING GOOD. RECEIVED WARM RAG TO WASH FACE/HANDS. PATIENT DOES NEED ANYTHING AT THIS TIME. CHAIR ALARM ON. 1:1.
--- NOTE | 2019-07-26 12:44 | NUR ---
PT SITTING UP IN RECLINER VISITING WITH KATHERINE POLANCO. DENIES NEEDS OR CONCERNS AT THIS TIME. REMAINS ALERT AND ORIENTED. CHAIR ALARM ON.
--- NOTE | 2019-07-26 14:05 | NUR ---
PATIENT AWAKE IN CHAIR. I DID IS&OS AND VITALS. URINE OUTPUT INCREASED TO 600ML. BLOOD PRESSURE WAS LOW AT 101/40. I WILL LET NURSE WENDI KNOW. PATIENT DOES NOT NEED ANYTHING AT THIS TIME. 1:1.
--- NOTE | 2019-07-26 14:15 | NUR ---
I INFORMED CHARGE NURSE KEEGAN OF LOWER BLOOD PRESSURE.
--- NOTE | 2019-07-26 14:43 | NUR ---
PT SITTING UP IN RECLINER VISITING WITH FRIEND EMILEE. DENIES NEEDS OR CONCERNS AT THIS TIME. KATHERINE POLANCO PRESENT. CHAIR ALARM ON.
--- NOTE | 2019-07-26 15:34 | NUR ---
PATIENT AWAKE IN CHAIR. REFUSED WALK IN [place]. RECIEVED WARM BLANKET AND DOES NOT NEED ANYTHING ELSE AT THIS TIME. 1:1.
--- NOTE | 2019-07-26 16:44 | NUR ---
Spoke with Dr. Edwards and she feels pt is appropriate for SNF. Pt is able to complete PT for deconditioning. Pt is positive for Klebsiella in urine and antibiotics will be changed by Dr. Edwards. Will contact [facility] to check for room and send chart.
--- NOTE | 2019-07-26 16:54 | NUR ---
ER notes, H&P, progress notes, PT/OT evals, face sheet sent to Cinthya at [facility].
--- NOTE | 2019-07-26 18:17 | NUR ---
PT SITTING UP IN RECLINER WATCHING TV BY HERSELF. HAS REMAINED APPROPRIATE. ATE DINNER INDEPENDENTLY. DENIES PAIN. ASKS MULTIPLE TIMES IF SHE WILL GET TO GO HOME TOMORROW. CHAIR ALARM ON. CALL LIGHT WITHIN REACH.
--- NOTE | 2019-07-26 18:43 | NUR ---
PATIENT SITTING IN CHAIR PLAYING CARDS. CALL LIGHT IN REACH. CHAIR ALARM ON. NO FURTHER NEEDS AT THIS TIME.
--- NOTE | 2019-07-26 19:00 | NUR ---
BEDSIDE REPORT RECEIVED FROM MAGDALENA ADAME. pt UP IN CHAIR. CHAIR ALARM ON. SBA TO RESTROOM. NO BM NOTED. CROOK DRAINING CLEAR YELLOW URINE. CALL LIGHT IN REACH. CHAIR ALARM BACK ON.
--- NOTE | 2019-07-26 21:48 | NUR ---
pt RESTING IN BED, ALERT AND ORIENTED TO PERSON, PLACE. REORIENTATION TO EVENT, TIME PROVIDED. ASSESSMENT COMPLETE. CROOK CARE COMPLETE. EDUCATION PROVIDED. pt WATCHING TV. APPLEASAUCE AND WATER PROVIDED. IV SL WNL. CALL LIGHT IN REACH. BED ALARM ON.
--- NOTE | 2019-07-27 00:27 | NUR ---
pt APPEARED AWAKE, STARTLES WHEN RN ENTERS ROOM. ASSISTED TO REPOSITION IN BED, HOB LOWERED. pt APPEARS TO GO BACK TO SLEEP, EYES CLOSED. BREATHING UNLABORED. LIGHTS TURNED OFF IN ROOM.
--- NOTE | 2019-07-27 02:42 | NUR ---
pt AWAKE RESTING IN BED WATCHING TV. STATES UNABLE TO SLEEP. ASSESSMENT COMPLETE. DENIES ANY PAIN. ICE WATER PROVIDED. CROOK DRAINING CLEAR YELLOW URINE. IV SITE SL. CALL LIGHT IN REACH. BED ALARM ON.
--- NOTE | 2019-07-27 06:37 | NUR ---
LE 0430 REPORT RECVD FROM ALEENA NICHOLS. IN TO CHECK ON PT, PT RESTING. CALL LIGHT IN REACH.
--- NOTE | 2019-07-27 06:39 | NUR ---
IN TO CHECK PT, PT AWAKE. PT WATCHING TV. NO NEEDS AT THIS TIME. CALL LIGHT IN REACH.
--- NOTE | 2019-07-27 07:40 | NUR ---
Bedside report received, orders acknowledged. Patient sitting up in chair with alarm on. Denies needs at this time, call light within reach.
--- NOTE | 2019-07-27 09:02 | NUR ---
PT UP AMBULATING IN HALLS WITH RETAIL SEASONAL SPECIALIST SBA WITH FWW.
--- NOTE | 2019-07-27 11:30 | NUR ---
Patient sitting in chair watching tv. Denies needs at this time, call light within reach.
--- NOTE | 2019-07-27 11:45 | NUR ---
Spoke with Mary and Jaja. Mary declines to go to a SNF. Jaja states concern as she feels Mary has a hard time cooking for self. Mary states she is fine and refuses to go any place but home. Discussed with Mary she has been confused, she is clear today. She states she will be careful and does not plan on leaving her apartment and will stay home. Jaja agrees to check on her and assist her as she had done in the past. She will cont. to drive Mary as needed. She also states Mary's walker has wheels that stick. She prefers 4ww walker with a seat and she plans on buying her own as she did not like the ones medicare will pay for.
--- NOTE | 2019-07-27 13:02 | NUR ---
Dr. Edwards in room to discuss POC with patient
--- NOTE | 2019-07-27 13:45 | NUR ---
Dr Edwards updated, pt declines SNF and would like to dc to home. will write orders. I again spoke with Mary and Jaja and they plan to dc to home today. Denies need for DME.
[2019-07-27] MEDS ORDERED: CEPHALEXIN500 MG PO (14:41)
--- NOTE | 2019-07-27 14:49 | NUR ---
Patient sitting in chair watching tv. Denies needs at this time, call light within reach.
--- NOTE | 2019-07-27 15:43 | NUR ---
Discharge instructions given. Patient verbalized understanding of follow up appointment. All personal belongings collected. IV D/C'd, vital signs taken. Patient leaves unit via wheelchair with nursing staff.
--- NOTE | 2019-08-04 15:24 | NUR ---
TALKED TO PT SISTER WHO IS HER CAREGIVER AND WAS HERE WITH PT MAJORITY OF THE TIME SHE STATED, SHE SAYS HER SISTER NELLIE IS DOING WONDERFUL, THEY TALKED WITH DR MARIE OVER THE PHONE AND WERE TOLD THAT LONG SHE IS DOING SO WELL FOR THEM TO JUST STAY HOME. DENIES FURTHER QUESTIONS.
== END 2019-07-27 15:40 | disposition home or self-care (01) | DRG 872 ==
LOC: ED 12:56 → CCU 18:10 → MS 07-25 16:10
PROVIDERS: ADMIT Internal Medicine
PROC: 3E033XZ Introduction of Vasopressor into Peripheral Vein, Percutaneous Approach (ICD-10-PCS; principal; 2019-07-22)
DX: A41.59 Other Gram-negative sepsis (principal); N39.0 Urinary tract infection, site not specified; I50.32 Chronic diastolic (congestive) heart failure; N17.9 Acute kidney failure, unspecified; R17 Unspecified jaundice; E03.9 Hypothyroidism, unspecified; R74.0 Nonspecific elevation of levels of transaminase and lactic acid dehydrogenase [LDH]; F03.90 Unspecified dementia, unspecified severity, without behavioral disturbance, psychotic disturbance, mood disturbance, and anxiety; E87.6 Hypokalemia; Z79.899 Other long term (current) drug therapy
CPT/HCPCS: 36415; 36600; 51702; 70450; 71045; 71260; 74177; 76705; 80053; 80074; 80176; 81001; 82140; 82550; 82803; 83605; 83735; 84439; 84443; 84484; 85025; 85610; 87040; 87077; 87088; 87186; 93005; 93010; 94760; 97116; 97162; 97165; 99285-25; A9270; G0480; J0696; J2543; J2760; J3370; J3480; J7030; J7060; J7121; Q9967

== ENCOUNTER 2020-10-17 08:33 | Emergency (ER) | payer MEDICARE, OTHER ==
[~2020-10-17] VITALS: Ht 172.7 cm; Wt 72.7 kg
[~2020-10-17 08:33] MED LIST changes: +CEPHALEXIN500 MG PO; +POTASSIUM CHLO20 ME1 PO
[2020-10-17] MEDS ORDERED: BACTRIM DS TAB1 EACH PO (10:51)
== END 2020-10-17 11:08 | disposition home or self-care (01) ==
LOC: ED 08:33
DX: T83.098A Other mechanical complication of other urinary catheter, initial encounter (principal); N39.0 Urinary tract infection, site not specified; E87.6 Hypokalemia; E03.9 Hypothyroidism, unspecified; J45.909 Unspecified asthma, uncomplicated; Z79.899 Other long term (current) drug therapy
CPT/HCPCS: 51702; 80048; 81001; 85025; 87077; 87088; 87186; 99284

== ENCOUNTER 2021-08-22 07:04 | Inpatient (IN) | payer MEDICARE, OTHER ==
[~2021-08-22] VITALS: Ht 172.7 cm; Wt 66.0 kg
[~2021-08-22 07:04] MED LIST changes: +BACTRIM DS TAB1 EACH PO
--- NOTE | 2021-08-22 17:28 | EKG ---
[facility] [address] [facility] [place] [address] Signed Sinus rhythm with 1st degree AV block Prolonged QT Abnormal ECG When compared with ECG of 22-JUL-2019 13:13, GA interval has increased ST elevation now present in Anterior leads Confirmed by GERMAINE SANDOVAL MD ([id number]) on 08/22/2021 5:27:49 PM Electronically Signed By: GERMAINE SANDOVAL MD 08/22/21 1728 PATIENT NAME: NELLIE CROSS Electrocardiogram DATE OF : 31 PHYSICIAN: GERMAINE SANDOVAL MD REPORT #: [id number] REPORT IS CONFIDENTIAL AND NOT TO BE RELEASED WITHOUT AUTHORIZATION
== END 2021-08-27 09:50 | DRG 698 ==
LOC: ED 07:04 → MS 15:18
PROVIDERS: ADMIT Internal Medicine; ATTEND Internal Medicine
PROC: 0HQ0XZZ Repair Scalp Skin, External Approach (ICD-10-PCS; principal; 2021-08-22)
PROC: 3E03329 Introduction of Other Anti-infective into Peripheral Vein, Percutaneous Approach (ICD-10-PCS; 2021-08-22)
DX: T83.511A Infection and inflammatory reaction due to indwelling urethral catheter, initial encounter (principal); G93.41 Metabolic encephalopathy; E86.0 Dehydration; Z66 Do not resuscitate; E03.9 Hypothyroidism, unspecified; Z20.822 Contact with and (suspected) exposure to COVID-19; F03.90 Unspecified dementia, unspecified severity, without behavioral disturbance, psychotic disturbance, mood disturbance, and anxiety; N30.90 Cystitis, unspecified without hematuria; J45.909 Unspecified asthma, uncomplicated; Z79.899 Other long term (current) drug therapy; Z90.710 Acquired absence of both cervix and uterus; S01.01XA Laceration without foreign body of scalp, initial encounter; W18.30XA Fall on same level, unspecified, initial encounter; I44.0 Atrioventricular block, first degree
CPT/HCPCS: 12013; 36415; 70450; 80053; 81001; 82553; 83605; 85025; 87040; 87070; 87075; 87088; 87205; 93005; 93010; 97110; 97112; 97116; 97163; 97165; 97530; 99285-25; C9803; J0696; J1650; J7121; U0003

== ENCOUNTER → 2021-11-08 | Emergency (ER) | payer MEDICARE, OTHER ==
[~2021-11-08] VITALS: Ht 172.7 cm; Wt 65.9 kg
[~2021-11-08] MED LIST changes: +FUROSEMIDE20 MG PO; +LIDODERM1 EACH TOP; +OXYCODONE HCL5 MG PO; +POTASSIUM CHLO10 ME2 PO; +TYLENOL EXTRA500 MG PO
== END ==
LOC: ED 02:42
DX: S01.01XA Laceration without foreign body of scalp, initial encounter (principal); R07.89 Other chest pain; M25.561 Pain in right knee; E03.9 Hypothyroidism, unspecified; J45.909 Unspecified asthma, uncomplicated; Z79.899 Other long term (current) drug therapy; W06.XXXA Fall from bed, initial encounter; Y92.092 Bedroom in other non-institutional residence as the place of occurrence of the external cause
CPT/HCPCS: 12002; 99283-25; A9270

== ENCOUNTER 2021-11-20 11:52 | Inpatient (IN) | payer MEDICARE, OTHER ==
[~2021-11-20] VITALS: Ht 172.7 cm; Wt 66.0 kg
--- OUTSIDE RECORDS SUMMARY | 2021-11-20 11:54 | XMS ---
PreManage Notification: NELLIE CROSS Security Yard Associate Events No recent Security Events currently on file CRITERIA MET - [facility] - 2 Visits in 30 Days - PDMP CARE PROVIDERS NEELIMA MCFARLAND Faculty Dean Current NAN Poole PHONE: [phone] SHARONDA BOYER Internal Medicine Current PHONE: Unknown ANGEL CLARK Nurse Practitioner Current PHONE: [phone] Temitope Espinal Emulsion Coater/Entry Level Web Developer 11/15/2020-Current PHONE: [phone] HE MCKINNEY Nurse Practitioner: Family Current PHONE: Unknown JOSSELYN VEE Internal Medicine Current PHONE: [phone] SHAYNA KUMAR Nurse Practitioner Current PHONE: [phone] PARVEEN HUNTER I. Physician Cashier Supervisor Current PHONE: Unknown RENEE PENNINGTON Nurse Practitioner Current PHONE: Unknown ANN MIRZA Nurse Practitioner Fatmata GAMEZ PHONE: [phone] SERGO Nurse Practitioner Fatmata ZAMUDIO PHONE: [phone] DREW [place] [facility] Current PHONE: Unknown DUNIA [facility] Current PHONE: [phone] GRACE JUSTICE Physician Cashier Supervisor Current PHONE: Unknown Keyanna has no Care Guidelines for this patient. Mary VISIT COUNT (12 MO.) 3 KIRBY Wallace TOTAL 3 NOTE: Visits indicate total known visits. ED/UCC VISIT TRACKING (12 MO.) 11/20/2021 11:53 KIRBY [facility] TYPE: Emergency COMPLAINT: - FALL 11/08/2021 02:42 [facility] TYPE: Emergency COMPLAINT: - GLF DIAGNOSES: - Pain in right knee - Hypothyroidism, unspecified - Unspecified asthma, uncomplicated - Fall from bed, initial encounter - Laceration without foreign body of scalp, initial encounter - Other chest pain - Bedroom in other non-institutional residence as the place of occurrence of the external cause - Other buttermaker (current) drug therapy 08/22/2021 07:05 KIRBY [facility] TYPE: Emergency COMPLAINT: - FALL, FOREHEAD INJURY INPATIENT VISIT TRACKING (12 MO.) 08/22/2021 15:18 [facility]IR[facility] TYPE: Medical Surgical COMPLAINT: - ENCEPHALOPATHY, CAUTI, DEHYDRATION DIAGNOSES: - Fall on same level, unspecified, initial encounter - Laceration without foreign body of scalp, initial encounter - Dehydration - Unspecified dementia without behavioral disturbance - Acquired absence of both cervix and uterus - Cystitis, unspecified without hematuria - Hypothyroidism, unspecified - Metabolic encephalopathy - Acquired absence of both cervix and uterus - Hypothyroidism, unspecified - Other mcfp (current) drug therapy - Contact with and (suspected) exposure to COVID-19 - Metabolic encephalopathy - Infection and inflammatory reaction due to indwelling urethral catheter, initial encounter - Unspecified asthma, uncomplicated - Laceration without foreign body of scalp, initial encounter - Cystitis, unspecified without hematuria - Do not resuscitate - Do not resuscitate - Urinary tract infection, site not specified - Infection and inflammatory reaction due to indwelling urethral catheter, initial encounter - Fall on same level, unspecified, initial encounter - Unspecified asthma, uncomplicated - Dehydration - Contact with and (suspected) exposure to COVID-19 - Atrioventricular block, first degree - Atrioventricular block, first degree - Other mcfp (current) drug therapy - Unspecified dementia without behavioral disturbance [email or web address]
[2021-11-20] MEDS ORDERED: ACETAMINOPHEN325 M1 PO (14:34)
[2021-11-20] MEDS ORDERED: DULCOLAX10 MG PR (14:37)
[2021-11-20] MEDS ORDERED: FLEET ENEMA133 ML PR (14:38)
[2021-11-20] MEDS ORDERED: LEVOTHYROXINE100 MCG PO (14:39)
[2021-11-20] MEDS ORDERED: LIDOCAINE1 EAC1 TOP (14:42)
[2021-11-20] MEDS ORDERED: OXYCODONE HCL5 MG PO (14:44)
[2021-11-20] MEDS ORDERED: POLYETHYLENE GL17 GM PO (14:46)
[2021-11-20] MEDS ORDERED: PREPARATION H O28 GM PR (14:48)
[2021-11-20] MEDS ORDERED: DIALYVITE VI1250 MCG PO (14:52)
--- NOTE | 2021-11-20 15:13 | NUR ---
REPORT RECIEVED FROM ER.
--- NOTE | 2021-11-20 16:56 | NUR ---
PT ARRIVED TO FLOOR VIA STRETCHER, VITALS TAKEN AND STABLE. PT ON 2L NC. PT ONLY HAS PAIN WITH MOVEMENT. PAIN MEDICAITONS GIVEN. ASSESSMETN COMPLETED. FLUIDS STARTED. TEDHOSE, SCD'S, AND HEAL PROTECTORS IN PLACE. PT VISIBLE FROM NURSING STATION. CALL LGIHT IN REACH. BED ALARM IN PLACE.
--- NOTE | 2021-11-20 18:19 | NUR ---
NEW ORDERS RECEIVED. NEW FLUIDS AND LR BOLUS STARTED. PT IN BED WATCHING TV. DENIES NEEDS. CALL LIGHT IN REACH.
--- NOTE | 2021-11-20 19:25 | NUR ---
REPORT RECEIVED FROM MAGDALENA MOODY. pt RESTING IN BED WITH OXYGEN OFF. 2L OXYGEN BY NC REAPPLIED. pt PULLED OWN IV SITE. pt DENIES ANY PAIN. SCDS, MOOK PLASCENCIAE, HEEL PROTECTORS ON. ICE PACK IN PLACE ON HIP. BED ALARM ON.
--- NOTE | 2021-11-20 20:08 | NUR ---
pt RESTING IN BED AWAKE. ORIENTED TO SELF, FORGETFUL THAT SHE IS IN HOSPITAL. VSS, TITRATED TO RA. SPO2 97%. ASSESSMENT COMPLETE. CSM INTACT PER pt. CROOK EMPTIED. pt COMPLAINS OF PAIN IN BACK, UNABLE TO RATE, ATTEMPT TO REPOSITION pt WITH PILLOW UNDER SIDE, pt REFUSES, GRIMACING. ICE PACK REMOVED AT THIS TIME. MOOK CHÁVEZ, HEEL PROTECTORS, SCDS ON.
--- NOTE | 2021-11-20 21:36 | NUR ---
pt RESTING IN BED WITH EYES CLOSED. BREATHING EQUAL AND UNLABORED. IVF INFUSING WNL. NO DISTRESS NOTED.
--- NOTE | 2021-11-20 21:56 | NUR ---
NEW IV STARTED, IV PROTECTED WITH TAPE AND TUBE GAUZE.
--- NOTE | 2021-11-20 23:18 | NUR ---
IV PUMP ALARMING, DISTAL OCCLUSION. SITE ASSESSED AND IVF INFUSING WNL ORDERED. pt RESTING IN BED, EYES CLOSED, BREATHING UNLABORED. CALL LIGHT NEXT TO pt. BED ALARM ON.
--- NOTE | 2021-11-21 00:51 | NUR ---
pt SITTING UP IN BED CALLING OUT. RNS IN pt ROOM. REORIENTATION PROVIDED. VSS. pt DRIFTING TO SLEEP AFTER REORIENTATION, SPO2 DROPS TO <90% ON RA, 2L OXYGEN BY NC REAPPLIED. pt PAINFUL TO TOUCH LEFT HIP, AND WITH REPOSITIONING. PRN PAIN MEDICATION ADMINISTERED. STRONG PEDAL PULSES PALPATED BILATERALLY, CAP REFILL WNL. ICE PACK PLACED ON LEFT HIP. PILLOW UNDER RIGHT SHOULDER. CALL LIGHT IN REACH. BED ALARM ON.
--- NOTE | 2021-11-21 03:09 | NUR ---
pt CALLING OUT. IV PUMP ALARMING, NOW INFUSING WNL. pt CLOSING EYES. 2L OXYGEN BY NC IN PLACE. NO DISTRESS NOTED.
--- NOTE | 2021-11-21 03:58 | NUR ---
pt CALLING OUT. "I NEED TO GET UP". REORIENTATION PROVIDED TO EVENT, PLAN OF CARE. pt ASSISTED TO REPOSITION WITH PILLOW BEHIND BACK. SHIFTS SELF SLIGHTLY IN BED. ORIENTED TO TIME. NO ADDITIONAL REQUESTS. CROOK DRAINING YELLOW URINE. IVF INFUSING WNL. BED ALARM ON.
--- NOTE | 2021-11-21 05:40 | NUR ---
LAB OUT OF ROOM AFTER LAB DRAW. pt EMOTIONAL, CONFUSED. REORIENTATION PROVIDED. ASSESSMENT COMPLETE. VSS. pt DENIES PAIN, NEW ICE PACK TO LEFT HIP. MOOK HOSJosé Miguel, HEEL PROTECTORS ON AND ADJUSTED, SCDS ON. BED ALARM ON.
--- NOTE | 2021-11-21 05:45 | NUR ---
pt CRYING, CALLING OUT. RN IN pt ROOM STATES "I KNOW YOU WERE JUST HERE, BUT I CAN'T SEE YOU". CURTAIN OPENED FURTHER FOR VIEW TO NURSES STATION. BED ALARM ON.
--- NOTE | 2021-11-21 06:19 | NUR ---
pt MEDICATED WITH IV PAIN MEDICATION. PRE SURGICAL WIPE DOWN COMPLETE. pt CRYING OUT WITH SLIGHT TURN TO CLEAN SKIN. CROOK NOTED TO BE LEAKING URINE, ATTENDS REMOVED, SATURATED. DAY SURGERY RN UPDATED HERE FOR pt. pt OFF FLOOR AT THIS TIME.
--- NOTE | 2021-11-21 07:39 | NUR ---
REPORT RECEIVED FROM NIGHT RN - PT OFF FLOOR TO OR.
--- NOTE | 2021-11-21 08:57 | NUR ---
11/21/21 0857 [address] [place] 0839 PATIENT IN TO PACU. REPORT RECIEVED FROM KALLI. PATIENT IS ON 6 LITERS VIA NASAL CANNULA. PATIENT IS MAINTAINING AIRWAY. BREATHING EQUAL AND UNLABORED. PATIENT SINUS RHYTHM WITH PAC'S ON TELE. PATIENT IS NONAROUASABLE. DRESSING IS CLEAN, DRY AND INTACT. IVF INFUSING. ICE PACK APPLIED. HEEL PROTECTORS APPLIED. SCD'S APPLIED. 0845 IMAGING IN TO TAKE PELVIC X-RAY. PATIENT IS DROWSY BUT AWAKE. SPINAL UNABLE TO ASSESS DUE TO ALTERED MENTAL STATUS AT BASELINE. PATIENT ABLE TO WIGGLE TOES. DENIES ANY PAIN OR NAUSEA. PATIENT GRIMICING. IVF INFUSING. OXYGEN AT 6 LITERS VIA MASK. BREATHING EQUAL AND UNLABORED. OXYGEN SATURATIONS MAINTAINING ABOVE 90%.
--- NOTE | 2021-11-21 09:28 | NUR ---
PT RETURNS TO MS FLOOR VIA BED AND CENTRAL STERILE SUPPLY TECHNICIAN'S - PT AWAKE AND ORIENTED X 3. MOVEMENT OF BLE WHEN ASKED TO WIGGLE TOES. DRESSING C/D/I. ICE PACK AT SITE, TOWEL ROLLS UNDER ANKLES, MOOK HOSE AND SCDS IN PLACE. 2L NC IN PLACE. VS STABLE. SIDE RAILS X 4, CALL LIGHT IN LAP.
--- NOTE | 2021-11-21 10:46 | NUR ---
RN IN ROOM ROUNDING ON PT - PT AWAKE AND ALERT WITH HOB ELEVATED, WATCHING TV. PT TOLERATING SIPS OF CLEAR ENSURE, SWALLOWED SCHEDULED MEDS WITHOUT DIFFICULTY. PT RATES PAIN 6/10. IV SITE TOLERATING FLUID INSUSION WITHOUT DIFFICULTY. PT USES IS 3 TIMES. BED ALARM ON AND CALL LIGHT IN REACH.
--- NOTE | 2021-11-21 11:56 | NUR ---
RN IN ROOM TO ROUND ON PT - PT AWAKE AND ALERT IN BED, RATES PAIN SAME AT 6/10. BP LOW AT 92/42 - WILL HOLD FURTHER PAIN MEDS AT THIS TIME AND MONITOR I/O. WILL RETAKE IN HOUR. CALL LIGHT IN REACH, BED ALARM ON.
--- NOTE | 2021-11-21 12:03 | NUR ---
Spoke with ROSALIND at [facility], pt may return between 10;00 and 11:00 tomorrow. Called and scheduled wc van and they will pick pt up at 1045 and strip picker a wc from T for transport at 10:30. ROSALIND notified.
--- NOTE | 2021-11-21 12:15 | NUR ---
RN IN ROOM TO ASSIST PT WITH LUNCH. PT "VERY HUNGRY" - FEEDING SELF WITHOUT DIFFICULTY. CALL LIGHT ON LAP. DOOR AND CURTAIN OPEN NEAR NURSES STATION.
--- NOTE | 2021-11-21 13:11 | NUR ---
PT ALERT, AWARE OF MY PRESENCE. MAGDALENA MCCARTY IN ON COMPUTER. PT STATED SHE LIKES TO HAVE COMPANY, DOESN'T GET MUCH. HAD PLEASANT VISIT, ENCOURAGEMENT AND BLESSING GIVEN. WILL FOLLOW
--- NOTE | 2021-11-21 13:26 | NUR ---
MD NOTIFIED OF SOFT BP WITH POOR URINE OUTPUT - RECEIVED VERBAL ORDER FOR 1000ML NS BOLUS. ALSO STATES OK TO GIVE NORCO FOR PAIN WITH CURRENT BP. CHARGE NURSE AWARE.
--- NOTE | 2021-11-21 13:41 | NUR ---
BOLUS STARTED AT 500ML PER HOUR.
--- NOTE | 2021-11-21 15:25 | NUR ---
RN IN ROOM TO ASSESS PT WHILE PT WORKS WITH PT. FOLLOWING PT INSTRUCTIONS WELL, TOLERATED EXERCISE WITH MODERATE PAIN, AMBULATED IN ROOM. PT UP TO CHAIR - HAIR CARE PROVIDED. MOOK HOSE REMAIN IN PLACE. DRESSING C/D/I. ICE AT SITE. IV SITE TOLERATING FLUID BOLUS.
--- NOTE | 2021-11-21 15:59 | NUR ---
IV BOLUS COMPLETE - BP STILL LOW AT 94/45. PT NOT SYMPTOMATIC WITH THIS. UP IN CHAIR. RATES PAIN 5/10.
--- NOTE | 2021-11-21 17:03 | NUR ---
PT CALLING OUT FROM ROOM FOR HELP - THINKS SHE IS OUTSIDE ALONE AT [facility]. PT REORIENTED AND PLACED IN CHAIR IN DOORWAY OF ROOM SO SHE CAN SEE THE NURSES STATION. PT NOW HAPPY AND WATCHING TV AWAITING DINNER.
--- NOTE | 2021-11-21 17:21 | NUR ---
RT COLLECTED RAPID COVID 19, RSV, AND FLU SWAB PER DR REQUEST USING IN HOUSE LAB WITH NO COMPLICATIONS AT THIS TIME.
--- NOTE | 2021-11-21 18:22 | NUR ---
PT BACK TO BED FROM CHAIR AFTER DINNER. PT AMBULATES WITH FWW AND 1 PERSON ASSIST. FOLLOWS DIRECTIONS WELL. 2 NORCO PROVIDED FOR PAIN BEFORE AMBULATION. URINE OUTPUT ADEQUATE FOR 4 HOURS, BP REMAINS ON LOWER END. CPOX IN PLACE, IV SITE TOLERATING FLUIDS. PT EXCITED TO BE ABLE TO HAVE TV ON ALL NIGHT.
--- NOTE | 2021-11-21 19:39 | NUR ---
report reciever from usha rid[facility]. pt is resting with eyes closed, NAD
--- NOTE | 2021-11-21 21:02 | OR ---
[facility] [address], [place] [address] Signed DATE OF OPERATION: 11/21/2021 SURGEON: Craig Albert MD PREOPERATIVE DIAGNOSIS: Left femoral neck fracture, displaced. POSTOPERATIVE DIAGNOSIS: Left femoral neck fracture, displaced. PROCEDURE PERFORMED: Left bipolar hemiarthroplasty. SHEET ROCK APPLICATOR: Krista Narayanan PA-C. Krista was present and critical for all portions of procedure. ANESTHESIA: Spinal. BLOOD LOSS: 150 cc. IMPLANTS: [employer] size 12 stem with a 48 mm cup and -3 head. BRIEF HISTORY: Nelile is an 86-year-old female with a history of a fall last weekend. She was found on radiographs on Thursday to have a nondisplaced femoral neck fracture. However, she continued to walk on it and displaced. She presented to the ER yesterday with a displaced femoral neck fracture and pain. She and her caregiver wished to proceed with surgery at that point. She was admitted to the hospital and cleared by the hospitalist. Risks, benefits, and alternatives of surgery were discussed with her and the caregiver and they elected to proceed. Once consent was obtained she was taken to the operating room. After adequate anesthesia she was placed in right lateral decubitus position. All downside pressure points well padded. An axillary roll was placed. The left hip was then prepped and draped in a standard sterile fashion. The hip was approached through standard anterior lateral approach carried through skin and subcutaneous tissue. The IT band was divided longitudinally and the vastus lateralis was divided from the tip of the trochanter distally and elevated subperiosteally around the level of the Electronically Signed By: CRAIG ALBERT MD 11/21/212101 PATIENT NAME: NELLIE CROSS OPERATIVE REPORT DATE OF : 31 REPORT #: [id number] PHYSICIAN: CRAIG ALBERT MD PCP: RAINA MARIE DO REPORT IS CONFIDENTIAL AND NOT TO BE RELEASED WITHOUT AUTHORIZATION [facility] [address], [place] [address] Signed lesser trochanter. The gluteus medius and minimus were split from the trochanter to the acetabular rim and elevated off the femoral neck. The femoral neck cut was then freshened up to remove all fracture fragments. The femoral head was then removed from the acetabulum and taken to the back table and measured to 48. A 48 trial was placed. The stem was found to be quite well fitting. The attention was turned to the proximal femur which was opened with the [employer] cutter followed by the Padma awl. It was then sequentially reamed and then broached to a 12. The 12 stem was then obtained and impacted until it was well seated and stable. A -3 trial and 48 bipolar trial were placed on it. The hip was reduced with some difficulty. Leg lengths found to be equal. She had good range of motion and stability. The hip was dislocated and the trials removed. The final -3 and 48 head were placed and hip was again reduced. She had excellent range of motion and good stability. Negative Shuck test. The wound was copiously irrigated with normal saline and pulse lavaged throughout the procedure, a total of 3 L were used. The hip was soaked in IrriSept in the midportion of the irrigation. The capsule was then closed using #1 Vicryl. The vastus and IT band layers were closed independently using #2 Stratafix with 0 Stratafix for subcutaneous tissue and ekta for the skin. The wound was dressed with an Acticoat 7 dressing. She was awakened and taken to the recovery room in satisfactory condition. All sponge, needle, and instrument counts were correct. Craig Albert MD BA/MODL /[id number] Copies: ~ Electronically Signed By: CRAIG ALBERT MD 11/21/212101 PATIENT NAME: NELLIE CROSS OPERATIVE REPORT DATE OF : 31 REPORT #: [id number] PHYSICIAN: CRAIG ALBERT MD PCP: RAINA MARIE DO REPORT IS CONFIDENTIAL AND NOT TO BE RELEASED WITHOUT AUTHORIZATION
--- NOTE | 2021-11-21 22:01 | NUR ---
PT ASSISTED TO BSC TWO PERSON MOD SYMONE,PT VOIDED AND PASSED GAS. CONTIUNED TO BE CONFUSED,PROCESS WAS PAINFUL. PT WAS MEDICATED FOR PAIN, UPON RETUNING TOTHE BED ATTEMPTED TO INSTRUCT PT TO USED WALKER, SHE WAS UNABLE TO STAND, SO MOD MAX ASSIST BACK TO THE BED. SHE IS SETTELED IN HER BED WATCHING tv, WATER GLASS WITHIN REACH AT BEDSIDE. ROOM AIR SpO2 88. SUPPLEMTAL OXYGEN PER NC ADMINISTED AT 1.5L NC.SpO2 NOW 95.
--- NOTE | 2021-11-21 23:32 | NUR ---
pt awake and plesantly confused, states "pain is not to bad", she is able to move in bed adlib. watching tv. NAD
--- NOTE | 2021-11-22 00:14 | NUR ---
PT CALLING OUT, IN TO CHECK ON PT, PT REDIERCTABLE TO PLACE, REASSURED PT ABOUT HOW AND WHEN SHE WILL RETURN TO HER CARE FACILITY, PT SEEMS TO FEEL BETTER BUT STATES SHE DOESENT SLEEP AT NIGHT, BUT IS HAPPY TO WATCH TELEVISION, BED ALARM IS IN PLACE, NO FURTHER NEEDS AT THIS TIME
--- NOTE | 2021-11-22 00:47 | NUR ---
PATIENT ASSISTED TO THE BSC A 2PA W/FWW. PATIENT ABLE TO VOID AND INCONT OF URINE. PATIENT IS BACK IN BED RESTING. PATIENT DENIES ANY PAIN. PATIENT HAS SCDS, TEDHOSE, AND HELL PROTECTORS IN. PATIENT HAS IV INFUSING PER ORDER. 2L VIA NC. CPOX IN USE AND READINGS ARE WNL. PATIENT DENIES ANY NEEDS. CALL LIGHT IN REACH. BED ALARM ON FOR SAFETY.
--- NOTE | 2021-11-22 03:58 | NUR ---
pt resting with eyes closed NAD, SpOO2 94 on 1.5L supplenemtal oxygen, HR 64. HOB at 30degrees, SCD and TDs in place. bed alarm on and pt room whithin view on nurseing station.
--- NOTE | 2021-11-22 04:59 | NUR ---
pt remains plesantly confused to time,place and situation. pt has needed mod/max assist to BSC to void. attemptd to orient pt to the walker and how to get OOB, pt was not able to complete task. she remains on supplemental oxygen to maintain SpO2 parameters.voiding w/o difficulty, oral intake good.
--- NOTE | 2021-11-22 07:47 | NUR ---
REPORT RECEIVED FROM NIGHT RN - PT AWAKE AND ALERT IN CHAIR WATCHING TV. PT HAS CPOX IN PLACE BUT DESATS TO HIGH 80'S SP02 WHEN NOT WEARING 02. 02 NOT CHRONIC AT SHELTER SHE LIVES AT, WILL ADDRESS NEED FOR 02 WITH MD.
[2021-11-22] MEDS ORDERED: HYDROCODON-ACE1 EA11 PO (09:25)
--- NOTE | 2021-11-22 09:41 | NUR ---
PT IS BACK IN BED WATCHING TV. I&O AND VS CHARTED. CALL LIGHT WITHIN REACH NO FURTHER TASKS AT THIS TIME
--- NOTE | 2021-11-22 09:52 | NUR ---
RN IN ROOM TO ASSESS PT AND READY FOR DC TO [place]. PT ALERT - REORIENTED TO SITUATION AND PLAN OF CARE. PT RATES PAIN 9/10 THIS MORNING SHE IS SITTING IN CHAIR, PT ABLE TO USE FWW APPROPRIATLY TO GET BACK TO BED. STATES IT FEELS BETTER IN SUPINE POSISTION. ICE APPLIED. SCHEDULED ULTRAM GIVEN. VS STABLE. SCDS AND MOOK HOSE IN PLACE WITH HEEL PROTECTORS ON. CALL LIGHT IN REACH.
--- NOTE | 2021-11-22 10:41 | NUR ---
PT LAYING UIETLY IN RM RESTING. PT RESPONDS TO MY VOICE. WANTS TO KNOW WHEN SHE GETS TO "GO HOME"? MAGDALENA MCCARTY WILL FOLLOW UP. GAVE ENCOURAGEMENT
--- NOTE | 2021-11-22 10:47 | NUR ---
report called to cristi - no further questions at this time. yellow packet left with pt in wheelchair van.
--- NOTE | 2021-11-23 13:06 | EKG ---
[facility] [address] [facility] [place] [address] Signed Sinus rhythm with 1st degree AV block with premature supraventricular complexes Left axis deviation Abnormal ECG When compared with ECG of 22-AUG-2021 07:29, premature supraventricular complexes are now present Confirmed by GERMAINE SANDOVAL MD ([id number]) on 11/23/2021 1:06:16 PM Electronically Signed By: GERMAINE SANDOVAL MD 11/23/21 1306 PATIENT NAME: NELLIE CROSS Electrocardiogram DATE OF : 31 PHYSICIAN: GERMAINE SANDOVAL MD REPORT #: [id number] REPORT IS CONFIDENTIAL AND NOT TO BE RELEASED WITHOUT AUTHORIZATION
== END 2021-11-22 10:40 | disposition home or self-care (01) | DRG 522 ==
LOC: ED 11:52 → MS 14:12
PROVIDERS: ADMIT Specialist; ATTEND Specialist
PROC: 0SRS0JZ Replacement of Left Hip Joint, Femoral Surface with Synthetic Substitute, Open Approach (ICD-10-PCS; principal; 2021-11-21 07:00)
DX: S72.032A Displaced midcervical fracture of left femur, initial encounter for closed fracture (principal); T83.511A Infection and inflammatory reaction due to indwelling urethral catheter, initial encounter; N39.0 Urinary tract infection, site not specified; Z20.822 Contact with and (suspected) exposure to COVID-19; E03.9 Hypothyroidism, unspecified; Z66 Do not resuscitate; R32 Unspecified urinary incontinence; I25.10 Atherosclerotic heart disease of native coronary artery without angina pectoris; J45.909 Unspecified asthma, uncomplicated; F03.90 Unspecified dementia, unspecified severity, without behavioral disturbance, psychotic disturbance, mood disturbance, and anxiety; I50.9 Heart failure, unspecified; E86.0 Dehydration; K29.70 Gastritis, unspecified, without bleeding; K75.9 Inflammatory liver disease, unspecified; S01.91XA Laceration without foreign body of unspecified part of head, initial encounter; R07.89 Other chest pain; N32.9 Bladder disorder, unspecified; Z98.61 Coronary angioplasty status; Z79.899 Other long term (current) drug therapy; Z90.710 Acquired absence of both cervix and uterus; W18.39XA Other fall on same level, initial encounter; Y84.6 Urinary catheterization as the cause of abnormal reaction of the patient, or of later complication, without mention of misadventure at the time of the procedure
CPT/HCPCS: 36415; 71045; 72170; 73502; 80048; 80053; 80076; 81001; 82306; 82553; 85025; 87088; 87502; 93005; 93010; 93970; 97110; 97162; 99285-25; A9270; C1776; C9803; J0690; J0696; J1170; J2001; J2370; J2704; J3480; J7030; J7040; J7121; U0003

== ENCOUNTER 2022-01-12 14:11 | Emergency (ER) | payer MEDICARE, OTHER ==
[~2022-01-12] VITALS: Ht 172.7 cm; Wt 65.9 kg
[~2022-01-12 14:11] MED LIST changes: +DIALYVITE VI1250 MCG PO; +DULCOLAX10 MG PR; +FLEET ENEMA133 ML PR; +HYDROCODON-ACE1 EA11 PO; +LIDOCAINE1 EAC1 TOP; +POLYETHYLENE GL17 GM PO; +PREPARATION H O28 GM PR
--- OUTSIDE RECORDS SUMMARY | 2022-01-12 14:14 | XMS ---
[facility] Notification: NELLIE CRSOS Security Machine Operator Packaging Events No recent Security Events currently on file CRITERIA MET - BEANP CARE PROVIDERS NEELIMA MCFARLAND Telegraph Printer Mechanicmukesh Poole PHONE: [phone] SHARONDA BOYER Internal Medicine Current PHONE: [phone] ANGEL CLARK Nurse Practitioner Current PHONE: [phone] [employer] Power Plant Operator Apprentice/Market Editor 11/15/2020-Current PHONE: [phone] HE MCKINNEY Nurse Practitioner: Family Current PHONE: Unknown JOSSELYN VEE Internal Medicine Current PHONE: [phone] SHAYNA KUMAR Nurse Practitioner Current PHONE: [phone] PARVEEN HUNTER I. Physician Consulting Marine Engineer Current PHONE: Unknown RENEE PENNINGTON Nurse Practitioner Current PHONE: Unknown ANN MIRZA Nurse Practitioner Fatmata GAMEZ PHONE: [phone] SERGO Nurse Practitioner Fatmata ZAMUDIO PHONE: [phone] DREW [facility] Nursing [facility] Current PHONE: Unknown DUNIA [facility] Current PHONE: [phone] GRACE JUSTICE Physician Consulting Marine Engineer Current PHONE: Unknown Keyanna has no Care Guidelines for this patient. Mary VISIT COUNT (12 MO.) [address] [facility] TOTAL 4 NOTE: Visits indicate total known visits. ED/UCC VISIT TRACKING (12 MO.) 01/12/2022 14:12 [facility] TYPE: Emergency COMPLAINT: - FALL 11/20/2021 11:53 [facility] TYPE: Emergency COMPLAINT: - FALL 11/08/2021 02:42 [facility] TYPE: Emergency COMPLAINT: - GLF DIAGNOSES: - Pain in right knee - Other chcf (current) drug therapy - Other chest pain - Fall from bed, initial encounter - Hypothyroidism, unspecified - Bedroom in other non-institutional residence as the place of occurrence of the external cause - Laceration without foreign body of scalp, initial encounter - Unspecified asthma, uncomplicated 08/22/2021 07:05 [facility] TYPE: Emergency COMPLAINT: - FALL, FOREHEAD INJURY INPATIENT VISIT TRACKING (12 MO.) 11/20/2021 14:[address] [facility] TYPE: Medical Surgical COMPLAINT: - LEFT HIP FX DIAGNOSES: - Unspecified urinary incontinence - Contact with and (suspected) exposure to COVID-19 - Other chcf (current) drug therapy - Pneumonia, unspecified organism - Heart failure, unspecified - Other chcf (current) drug therapy - Hypothyroidism, unspecified - Atherosclerotic heart disease of [place] coronary artery without angina pectoris - Dehydration - Infection and inflammatory reaction due to indwelling urethral catheter, initial encounter - Urinary catheterization as the cause of abnormal reaction of the patient, or of later complication, without mention of misadventure at the time of the procedure - Hypothyroidism, unspecified - Displaced midcervical fracture of left femur, initial encounter for closed fracture - Gastritis, unspecified, without bleeding - Sepsis, unspecified organism - Laceration without foreign body of unspecified part of head, initial encounter - Unspecified dementia without behavioral disturbance - Urinary tract infection, site not specified - Atherosclerotic heart disease of [place] coronary artery without angina pectoris - Inflammatory liver disease, unspecified - Other chest pain - Bladder disorder, unspecified - Urinary tract infection, site not specified - Do not resuscitate - Unspecified asthma, uncomplicated - Do not resuscitate - Bladder disorder, unspecified - Other fall on same level, initial encounter - Gastritis, unspecified, without bleeding - Unspecified asthma, uncomplicated - Heart failure, unspecified - Unspecified dislocation of left hip, initial encounter - Dehydration - Laceration without foreign body of unspecified part of head, initial encounter - Surgical operation with implant of artificial internal device as the cause of abnormal reaction of the patient, or of later complication, without mention of misadventure at the time of the procedure - Coronary angioplasty status - Acquired absence of both cervix and uterus - Acquired absence of both cervix and uterus - Other fall on same level, initial encounter - Unspecified urinary incontinence - Urinary catheterization as the cause of abnormal reaction of the patient, or of later complication, without mention of misadventure at the time of the procedure - Unspecified dementia without behavioral disturbance - Other chest pain - Inflammatory liver disease, unspecified - Infection and inflammatory reaction due to indwelling urethral catheter, initial encounter - Contact with and (suspected) exposure to COVID-19 - Coronary angioplasty status 08/22/2021 15:[address] [facility] [place] TYPE: Medical Surgical COMPLAINT: - ENCEPHALOPATHY, CAUTI, DEHYDRATION DIAGNOSES: - Infection and inflammatory reaction due to indwelling urethral catheter, initial encounter - Acquired absence of both cervix and uterus - Laceration without foreign body of scalp, initial encounter - Infection and inflammatory reaction due to indwelling urethral catheter, initial encounter - Unspecified asthma, uncomplicated - Hypothyroidism, unspecified - Fall on same level, unspecified, initial encounter - Contact with and (suspected) exposure to COVID-19 - Acquired absence of both cervix and uterus - Do not resuscitate - Laceration without foreign body of scalp, initial encounter - Atrioventricular block, first degree - Other salvage determiner (current) drug therapy - Urinary tract infection, site not specified - Unspecified dementia without behavioral disturbance - Unspecified dementia without behavioral disturbance - Metabolic encephalopathy - Fall on same level, unspecified, initial encounter - Cystitis, unspecified without hematuria - Unspecified asthma, uncomplicated - Dehydration - Metabolic encephalopathy - Cystitis, unspecified without hematuria - Atrioventricular block, first degree - Hypothyroidism, unspecified - Do not resuscitate - Dehydration - Other salvage determiner (current) drug therapy - Contact with and (suspected) exposure to COVID-19 [email or web address]
[2022-01-12] MEDS ORDERED: MILK OF MA400 MG/5 M PO (15:46)
[2022-01-12] MEDS ORDERED: FLEET ENEMA133 ML PR (15:47)
[2022-01-12] MEDS ORDERED: NAMENDA5 MG PO (15:49)
[2022-01-12] MEDS ORDERED: VENTOLIN HFA18 GM INH (15:49)
[2022-01-12] MEDS ORDERED: LASIX20 MG PO (15:50)
[2022-01-12] MEDS ORDERED: CYMBALTA20 MG PO (15:50)
== END 2022-01-12 16:40 | disposition home or self-care (01) ==
LOC: ED 14:11
DX: S01.01XA Laceration without foreign body of scalp, initial encounter (principal); W18.30XA Fall on same level, unspecified, initial encounter
CPT/HCPCS: 70450; 99284-25